=== PATIENT | male | born 1965 | race Caucasian/White ===

== ENCOUNTER 2018-03-17 00:10 | Inpatient (IN) | payer OTHER ==
[~2018-03-17] VITALS: Ht 172.7 cm; Wt 65.8 kg
--- NOTE | ~2018-03-17 | EKG ---
[address] [place] [address] ELECTROCARDIOGRAM REPORT Name: JONY CURTIS Room #: 460-P ADM IN M.R.#: [id number] Admission: 03/17/18 Attend Phys: Italo Del Cid MD Discharge: Date of : 67 Report #: [id number] THIS REPORT FOR: //name// [facility] ED Test Date: 2018-03-17 Test Time: 00:31:21 Pat Name: JONY CURTIS Department: Room: Gender: [employer]: MANASA : 1965 Requested By: Federico Puentes Order Number: [id number] MD: Darrel Cochran Measurements Intervals [place] Rate: 79 P: 42 HI: 136 QRS: 20 QRSD: 84 T: 37 QT: 389 QTc: 447 Interpretive Statements Sinus rhythm Normal tracing No previous ECG available for comparison Electronically Signed On 03-17-2018 14:09:06 CDT by Darrel Cochran [email or web address] <ELECTRONICALLY SIGNED> By: Darrel Cochran MD, [facility] 03/17/18 1409 0031 0031 Darrel Cochran MD, FACC /EPI
[2018-03-17 00:12] VITALS: BP 126/72
[2018-03-17 01:10] LABS: ABSOLUTE NEUTROPHILS 3.4 thou/uL (1.4-8.2); BASOPHILS 0.5 % (0.0-2.0); EOSINOPHILS 3.3 % (0.0-3.0); HEMATOCRIT 31.9 % (42.0-52.0); HEMOGLOBIN 10.3 gm/dL (14.0-18.0); LYMPHOCYTES 6.1 % (24.0-44.0); MCHC 32.4 g/dL (28.0-37.0); MONOCYTES 4.8 % (1.0-8.0); PLATELET COUNT 199 thou/uL (150-400); POLYS 85.3 % (36.0-66.0); RBC 4.14 mil/uL (4.50-6.00); RDW 18.1 % (10.5-14.5)
[2018-03-17 01:16] LABS: ANION GAP 6 mmol/L (7-16); BUN 19 mg/dL (7-18); CALCIUM 8.8 mg/dL (8.5-10.1); CHLORIDE 100 mmol/L (98-107); CO2 28 mmol/L (21-32); CREATININE 1.2 mg/dL (0.7-1.3); GLUCOSE 114 mg/dL (74-106); POTASSIUM 3.9 mmol/L (3.5-5.1); SODIUM 134 mmol/L (136-145)
[2018-03-17 01:24] LABS: ALBUMIN 2.4 g/dL (3.4-5.0); MAGNESIUM 1.7 mg/dL (1.8-2.4); SGOT 60 U/L (15-37); SGPT 69 U/L (30-65); TOTAL PROTEIN 6.9 g/dL (6.4-8.2); TROPONIN-I <0.06 ng/mL (<0.06)
[2018-03-17 01:29] LABS: INR 1.1
[2018-03-17] MEDS ORDERED: NEURONTIN 300300 M1 PO (01:31)
[2018-03-17] MEDS ORDERED: NIFEDIPINE ER60 M1 PO (01:31)
[2018-03-17] MEDS ORDERED: PROBIOTIC1 EAC1 PO (01:31)
[2018-03-17] MEDS ORDERED: ATIVAN1 MG PO ×2 (01:32→01:38)
[2018-03-17] MEDS ORDERED: DIPHENHIST50 MG PO (01:32)
[2018-03-17] MEDS ORDERED: ACCU-CHEK1 EAC1 (01:33)
[2018-03-17] MEDS ORDERED: HEPARIN 5,5000 UNIT3 SUBQ (01:34)
[2018-03-17] MEDS ORDERED: HUMALOG100 UNIT/1 SUBQ (01:34)
[2018-03-17] MEDS ORDERED: IPRAT-ALBUT 0.5-3 ML INH (01:35)
[2018-03-17] MEDS ORDERED: LANTUS100 UNIT/M SUBQ (01:36)
[2018-03-17] MEDS ORDERED: ROXICODONE30 M1 PO (01:36)
[2018-03-17] MEDS ORDERED: TEFLARO 600 MG600 MG IV (01:37)
[2018-03-17 02:04] VITALS: BP 95/59
[2018-03-17 02:57] VITALS: BP 95/64
[2018-03-17 08:00] VITALS: BP 94/62
[2018-03-17 09:30] LABS: CHOLESTEROL 182 mg/dL (<200); HDL CHOLESTEROL 52 mg/dL (>40); LDL CHOLESTEROL 113 mg/dL (<100); TC:HDL 3.5 Ratio (Not establshd); TRIGLYCERIDE 88 mg/dL (<150); VLDL 18 mg/dL (<40)
[2018-03-17] MEDS ORDERED: NITROGLYCERIN0.4 MG SUBLING (20:34)
== END 2018-03-17 14:13 | disposition left against medical advice (07) | DRG 313 ==
LOC: ER 00:10 → 4W 01:53 → EROBS 01:53 → 4W 02:50
PROVIDERS: Emergency Medicine; Internal Medicine Cardiovascular Disease
DX: R07.89 Other chest pain (principal); I10 Essential (primary) hypertension; J44.9 Chronic obstructive pulmonary disease, unspecified; E11.51 Type 2 diabetes mellitus with diabetic peripheral angiopathy without gangrene; E11.40 Type 2 diabetes mellitus with diabetic neuropathy, unspecified; E11.621 Type 2 diabetes mellitus with foot ulcer; E78.00 Pure hypercholesterolemia, unspecified; L97.519 Non-pressure chronic ulcer of other part of right foot with unspecified severity; F17.210 Nicotine dependence, cigarettes, uncomplicated; Z79.4 Long term (current) use of insulin; Z79.899 Other long term (current) drug therapy; Z71.6 Tobacco abuse counseling
CPT/HCPCS: 10045

== ENCOUNTER 2018-03-17 19:17 | Emergency (ER) | payer OTHER ==
[~2018-03-17] VITALS: Ht 172.7 cm; Wt 65.8 kg
--- NOTE | ~2018-03-17 | EKG ---
[facility] [place] [place] [address] ELECTROCARDIOGRAM REPORT Name: JONY CURTIS [facility] Matt#: [id number] Admission: 03/17/18 Attend Phys: Discharge: 03/17/18 Date of : 67 Report #: [id number] THIS REPORT FOR: //name// [facility] ED Test Date: 2018-03-17 Test Time: 19:55:46 Pat Name: JONY CURTIS Department: Room: Gender: [employer]: shayne : 1965 Requested By: Federico Puentes Order Number: [id number] MD: Darrel Cochran Measurements Intervals [place] Rate: 74 P: 46 IA: 145 QRS: 17 QRSD: 87 T: 40 QT: 396 QTc: 440 Interpretive Statements Sinus rhythm Normal tracing Compared to ECG 03/17/2018 00:31:21 No significant changes Electronically Signed On 03-18-2018 7:52:29 CDT by Darrel Cochran [email or web address] <ELECTRONICALLY SIGNED> By: Darrel Cochran MD, [facility] 03/18/18 0752 [id number] 54 Darrel Cochran MD, FACC /EPI
[~2018-03-17 19:17] MED LIST: ACCU-CHEK1 EAC1; ATIVAN1 MG PO; DIPHENHIST50 MG PO; HEPARIN 5,5000 UNIT3 SUBQ; HUMALOG100 UNIT/1 SUBQ; IPRAT-ALBUT 0.5-3 ML INH; LANTUS100 UNIT/M SUBQ; NEURONTIN 300300 M1 PO; NIFEDIPINE ER60 M1 PO; PROBIOTIC1 EAC1 PO; ROXICODONE30 M1 PO; TEFLARO 600 MG600 MG IV
[2018-03-17] MEDS ORDERED: NITROGLYCERIN0.4 MG SUBLING (20:34)
== END 2018-03-17 21:30 | disposition home or self-care (01) ==
LOC: ER 19:17
DX: R07.9 Chest pain, unspecified (principal); R50.9 Fever, unspecified; M86.8X7 Other osteomyelitis, ankle and foot; E11.621 Type 2 diabetes mellitus with foot ulcer; L97.509 Non-pressure chronic ulcer of other part of unspecified foot with unspecified severity; I10 Essential (primary) hypertension; J44.9 Chronic obstructive pulmonary disease, unspecified; E11.40 Type 2 diabetes mellitus with diabetic neuropathy, unspecified; F17.210 Nicotine dependence, cigarettes, uncomplicated